=== PATIENT | female | born 2000 | race African-American/Black ===

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

== ENCOUNTER 2019-06-29 14:47 | Emergency (ER) | payer SELFPAY ==
[~2019-06-29] VITALS: Ht 160 cm; Wt 126.0 kg
[~2019-06-29 14:47] MED LIST changes: +BACI28.34 TP; +HYDR-2761 PO
[2019-06-29 15:32] LABS: BILIRUBIN,URINE NEGATIVE (NEG); CLARITY,URINE CLEAR; COLOR,URINE YELLOW; NITRITE,URINE NEGATIVE (NEG); PROTEIN,URINE NEGATIVE (NEG-TRACE); UROBILINOGEN,URINE 0.2 mg/dL (0.2 mg/dL)
[2019-06-29 15:55] LABS: BACTERIA,URINE FEW /HPF (0-FEW); SQUAMOUS EPITHELIAL CELL,UR FEW /LPF
[2019-06-29] MEDS ORDERED: METR500T PO (17:41)
--- NOTE | 2019-06-29 17:41 | PHYS DOC ---
Past Medical History Past Medical History: No Pertinent History Additional Past Medical Histor: strep throat (ARTI ROMERO APRN) Past Surgical History: No Surgical History (ARTI ROMERO APRN) Smoking Status: Never Smoker Alcohol Use: Occasionally Drug Use: Marijuana (ARTI ROMERO APRN) Adult General Chief Complaint Chief Complaint: PAIN ON URINATION HPI HPI Patient is a 18 year old AA female who presents to the emergency department with complaints of irregular vaginal discharge and odor for the last month with dysuria for the last 2 weeks. She reports that her lower abdomen hurts when she urinates. Patient states she feels like she did when she previously had bacterial vaginosis. Patient reports having irregular menstrual cycles for months now. She reports that she started to have bloody vaginal discharge today. She currently rates her pain a 9 out of 10 on the pain scale, she denies any alleviating factors, and describes the pain as burning. She denies any urinary frequency, hesitancy, or urgency. She denies any fever, nausea, vomiting, diarrhea, constipation, cough, shortness of breath, ear pain, or sore throat. (ARTI ROMERO APRN) Review of Systems Review of Systems Complete ROS is negative unless otherwise noted in HPI. (ARTI ROMERO APRN) Allergies Allergies Allergies Coded Allergies Type Severity Reaction Last Updated Verified No Known Drug Allergies 09/22/14 No (DEANDRE MCKEON MD) Physical Exam Physical Exam See Above Constitutional: Well developed, well nourished, no acute distress, non-toxic appearance, obese. HENT: Normocephalic, atraumatic, bilateral external ears normal, nose normal. Eyes: PERRLA, EOMI, conjunctiva normal, no discharge. Neck: Normal range of motion, supple, no stridor. 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 Extremities: No cyanosis, ROM intact, no edema. Neurologic: Alert and oriented X 3, no focal deficits noted. Psychologic: Affect normal, judgement normal, mood normal. (ARTI ROMERO APRN) Current Patient Data Vital Signs Vital Signs Date Time Temp Pulse Resp B/P (MAP) Pulse Ox O2 Delivery O2 Flow Rate FiO2 06/29/19 17:49 98.1 88 18 99 98.1 06/29/19 14:56 129/68 (88) Room Air (DEANDRE MCKEON MD) Lab Values Laboratory Tests Test 06/29/19 14:50 06/29/19 15:23 Urine Collection Type Void Urine Color Yellow Urine Clarity Clear Urine pH 6.0 (<5.0-8.0) Urine Specific [place] 1.020 (1.000-1.030) Urine Protein Negative mg/dL (NEG-TRACE) Urine Glucose (UA) Negative mg/dL (NEG) Urine Ketones (Stick) Negative mg/dL (NEG) Urine Blood Small (NEG) Urine Nitrite Negative (NEG) Urine Bilirubin Negative (NEG) Urine Urobilinogen Dipstick 0.2 mg/dL (0.2 mg/dL) Urine Leukocyte Esterase Negative (NEG) Urine RBC 6-10 /HPF (0-2) Urine WBC 1-4 /HPF (0-4) Urine Squamous Epithelial Cells Few /LPF Urine Bacteria Few /HPF (0-FEW) Urine Mucus Mod /LPF POC Urine HCG, Qualitative Hcg negative (Negative) Microbiology 06/29/19 Wet Prep - Final, Complete (DEANDRE MCKEON MD) EKG EKG [] (ARTI ROMERO APRN) Radiology/Procedures Radiology/Procedures UA is not concerning for a urinary tract infection, wet mount is concerning for bacterial vaginosis. Prescription written for Flagyl 500 mg p.o. twice daily x7 days. Patient encouraged to follow-up with Dr. Jones for further evaluation of irregular menstrual cycles, or her primary care doctor. Encourage patient to return to the ER if symptoms worsen or fever develops. Patient verbalized an understanding of home care, medications, follow-up, and r eturn to ED instructions and was in agreement with the plan of care. [] (ARTI ROMERO APRN) Course & Med Decision Making Course & Med Decision Making Pertinent Labs and Imaging studies reviewed. (See chart for details) [] (ARTI ROMERO APRN) Course & Med Decision Making I was not involved in the care of this patient at 1800 on June 29, 2019. (DEANDRE MCKEON MD) Dragon Disclaimer Dragon Disclaimer This electronic medical record was generated, in whole or in part, using a voice recognition dictation system. (ARTI ROMERO APRN) Departure Departure Impression: Primary Impression: Bacterial vaginosis Additional Impression: Irregular uterine bleeding Disposition: HOME, SELF-CARE Condition: STABLE Referrals: NO PCP (PCP) DENISE ABERNATHY Jr, MD Patient Instructions: Abnormal Uterine Bleeding, Bacterial Vaginosis, [id number] Additional Instructions: Fill the prescription and use it as directed. Follow-up with for further evaluation of your abnormal uterine bleeding, or use the provider list that was given to you to follow-up with a primary care doctor Scripts Metronidazole (FLAGYL) 500 Mg Tablet 1 TAB PO BID, #14 TAB 0 Refills Prov: ARTI ROMERO APRN 06/29/19 Problem Qualifiers ARTI ROMERO APRN Jun 29, 2019 17:41 DEANDRE MCKEON MD Jun 30, 2019 18:22
[2019-06-29 17:49] VITALS: BP 123/74
[2019-07-01 06:09] LABS: GC PROBE Negative (Negative)
--- NOTE | 2019-07-01 17:31 | VNOTE ---
CALL BACK NOTE CALL BACK Microbiology 06/29/19 Wet Prep - Final, Complete Spoke with patient about positive Chlamydia testing. will send over prescription for zithromax to [facility] on [address] [facility] [address] [address] [facility] [address] ARTI ROMERO APRN Jul 01, 2019 17:31
== END 2019-06-29 17:51 | disposition home or self-care (01) ==
LOC: ER 14:47
DX: N76.0 Acute vaginitis (principal); B96.89 Other specified bacterial agents as the cause of diseases classified elsewhere; N93.9 Abnormal uterine and vaginal bleeding, unspecified; F12.90 Cannabis use, unspecified, uncomplicated
CPT/HCPCS: 81001; 81025; 87491; 87591; 99284; Q0111

== ENCOUNTER 2019-12-08 19:31 | Emergency (ER) | payer SELFPAY ==
[~2019-12-08] VITALS: Ht 157.5 cm; Wt 109.0 kg
[2019-12-08 20:04] VITALS: BP 135/96
--- NOTE | 2019-12-08 20:22 | PHYS DOC ---
Past Medical History Past Medical History: No Pertinent History Additional Past Medical Histor: strep throat Past Surgical History: No Surgical History Smoking Status: Never Smoker Alcohol Use: Occasionally Drug Use: Marijuana General Adult EDM: Chief Complaint: PELVIC PAIN HPI: HPI: Patient is a 19-year-old female who presents to the ED with vaginal itching and pain. Patient was treated for chlamydia 3 months ago and states she regularly has "bacterial vaginosis" and UTIs. Patient describes itching and burning as well as a new darker discharge. Patient is currently sexually active with one partner. Patient's last menstrual period was 1 month ago, and is currently starting her first day. Review of Systems: Review of Systems: Constitutional: Denies fever or chills. [] Eyes: Denies change in visual acuity. [] HENT: Denies nasal congestion or sore throat. [] Respiratory: Denies cough or shortness of breath. [] Cardiovascular: Denies chest pain or edema. [] GI: Denies abdominal pain, nausea, vomiting, bloody stools or diarrhea. [] : Denies dysuria. [] Musculoskeletal: Denies back pain or joint pain. [] Integument: Denies rash. [] Neurologic: Denies headache, focal weakness or sensory changes. [] Endocrine: Denies polyuria or polydipsia. [] Lymphatic: Denies swollen glands. [] Psychiatric: Denies depression or anxiety. [] Heart Score: Risk Factors: Risk Factors: DM, Current or recent (<one month) smoker, HTN, HLP, family history of CAD, obesity. Risk Scores: Score 0 - 3: 2.5% MACE over next 6 weeks - Discharge Home Score 4 - 6: 20.3% MACE over next 6 weeks - Admit for Clinical Observation Score 7 - 10: 72.7% MACE over next 6 weeks - Early Invasive Strategies Allergies: Allergies: Allergies Coded Allergies Type Severity Reaction Last Updated Verified No Known Drug Allergies 09/22/14 No Physical Exam: PE: Constitutional: Well developed, well nourished, no acute distress, non-toxic appearance. [] HENT: Normocephalic, atraumatic, bilateral external ears normal, oropharynx moist, no oral exudates, nose normal. [] Eyes: PERRLA, EOMI, conjunctiva normal, no discharge. [] Neck: Normal range of motion, no tenderness, supple, no stridor. [] Cardiovascular:Heart rate regular rhythm, no murmur [] Lungs & Thorax: Bilateral breath sounds clear to auscultation [] Abdomen: Bowel sounds normal, soft, no tenderness, no masses, no pulsatile masses. [] Skin: Warm, dry, no erythema, no rash. [] Back: No tenderness, no CVA tenderness. [] Extremities: No tenderness, no cyanosis, no clubbing, ROM intact, no edema. [] Neurologic: Alert and oriented X 3, normal motor function, normal sensory function, no focal deficits noted. [] Psychologic: Affect normal, judgement normal, mood normal. [] Current Patient Data: Labs: Laboratory Tests Test 12/08/19 20:03 POC Urine HCG, Qualitative Hcg negative (Negative) Course & Med Decision Making: Course & Med Decision Making Pertinent Labs and Imaging studies reviewed. (See chart for details) Patient is a 19-year-old female presenting to the ED with pelvic pain. Patient states she has had itching and burning in the vaginal area with new darker discharge. Patient has a long history of bacterial vaginosis, was treated for chlamydia 3 months ago, and a tree of UTIs. Urine analysis shows contamination with squamous epithelial cells likely due to menses. Patient is negative for bacterial vaginosis. Patient will be notified of results of other pending STI labs. Patient stable for discharge with outpatient follow-up with PCP. Discussed findings and plan with patient, who acknowledges understanding and agreement. Jermaine Disclaimer: Jermaine Disclaimer: This electronic medical record was generated, in whole or in part, using a voice recognition dictation system. Departure Departure Impression: Primary Impression: Concern about STD in female without diagnosis Disposition: 01 HOME, SELF-CARE Condition: STABLE Referrals: NO PCP (PCP) DENISE ABERNATHY Jr, MD Patient Instructions: Sexually Transmitted Disease, [id number] Justicifation of Admission Dx: Justifications for Admission: Justification of Admission Dx: N/A KESHIA VARMA DO Dec 08, 2019 20:22
[2019-12-08 20:23] LABS: BILIRUBIN,URINE NEGATIVE (NEG); CLARITY,URINE CLOUDY; COLOR,URINE AMBER; NITRITE,URINE NEGATIVE (NEG); PROTEIN,URINE 30 mg/dL (NEG-TRACE); UROBILINOGEN,URINE 0.2 mg/dL (0.2 mg/dL)
[2019-12-08 20:27] LABS: SQUAMOUS EPITHELIAL CELL,UR MANY /LPF
[2019-12-08 20:28] LABS: BACTERIA,URINE MANY /HPF (0-FEW); RBC,URINE 20-40 /HPF (0-2)
[2019-12-08 20:30] LABS: WBC,URINE OCC /HPF (0-4)
[2019-12-08] MEDS ORDERED: AZITHROMYCIN 250 MG TABLET. PO ONE (21:00)
[2019-12-08] MEDS ORDERED: cefTRIAXone IM 250 MG VIAL IM ONE (21:00)
[2019-12-10 21:08] LABS: GC PROBE Negative (Negative)
== END 2019-12-08 21:24 | disposition home or self-care (01) ==
LOC: ER 19:31
DX: Z20.2 Contact with and (suspected) exposure to infections with a predominantly sexual mode of transmission (principal); L29.8 Other pruritus; R10.2 Pelvic and perineal pain; Z87.440 Personal history of urinary (tract) infections
CPT/HCPCS: 81001; 81025; 87086; 87491; 87591; 96372; 99284; J0696; Q0111

== ENCOUNTER 2020-08-21 04:12 | Emergency (ER) | payer SELFPAY ==
[~2020-08-21] VITALS: Ht 157.5 cm; Wt 94.0 kg
[2020-08-21] MEDS ORDERED: cefTRIAXone IM 500 MG VIAL. IM ONE (06:30)
[2020-08-21] MEDS ORDERED: AZITHROMYCIN 250 MG TABLET. PO ONE (06:30)
--- NOTE | 2020-08-21 06:35 | PHYS DOC ---
Past Medical History Past Medical History: STD Additional Past Medical Histor: Frequent strep throat Past Surgical History: No Surgical History Smoking Status: Current Some Day Smoker Additional Information: SHE VAPES Alcohol Use: Occasionally Drug Use: Marijuana General Adult EDM: Chief Complaint: MULTIPLE COMPLAINTS HPI: HPI: Patient is a 20 year old [f__sex] who presents with [] Review of Systems: Review of Systems: Constitutional: Denies fever or chills Eyes: Denies redness or eye pain HENT: Denies nasal congestion or sore throat Respiratory: Denies cough or shortness of breath Cardiovascular: Denies chest pain or palpitations GI: Reports lower abdominal/pelvic pain; denies nausea or vomiting : Reports dysuria; denies hematuria MACHINE RIVETER: Denies vaginal bleeding or discharge Musculoskeletal: Denies back pain or joint pain Integument: Denies rash or skin lesions Neurologic: Denies headache, focal weakness or sensory changes Complete systems were reviewed and found to be within normal limits, except as documented in this note. Heart Score: C/O Chest Pain: N/A Allergies: Allergies: Allergies Coded Allergies Type Severity Reaction Last Updated Verified No Known Drug Allergies 09/22/14 No Physical Exam: PE: Constitutional: Well developed, well nourished, no acute distress, non-toxic appearance HENT: Normocephalic, atraumatic Eyes: Conjunctiva normal, no discharge Neck: Normal range of motion, supple Lungs & Thorax: No respiratory distress, equal chest rise and fall Abdomen: Soft, no tenderness, no guarding/rebound tenderness/distention Pelvic exam: Neurodiagnostic Tech RN, external genitalia normal, no CMT, no adnexal tenderness Skin: Warm, dry, no erythema, no rash Back: No tenderness, no CVA tenderness Extremities: No tenderness, ROM intact, no edema Neurologic: Alert and oriented X 3, no focal deficits noted Psychologic: Affect normal, judgment normal Current Patient Data: Vital Signs: Vital Signs Date Time Temp Pulse Resp B/P (MAP) Pulse Ox O2 Delivery O2 Flow Rate FiO2 08/21/20 04:30 97.3 112 20 128/87 (101) 99 Room Air 97.3 EKG: EKG: [] Radiology/Procedures: Radiology/Procedures: [] Course & Med Decision Making: Course & Med Decision Making Pertinent Lab studies reviewed. (See chart for details) Patient presents with report of dysuria and increased frequency. Patient reports concern for STD exposure as her boyfriend recently tested positive and has been treated. Patient was awaiting health department appointment. Patient reports last night symptoms became worse. UA...... Urine ..... Pelvic exam performed. Chlamydia/gonorrhea cultures pending. Empiric treatment provided. Wet mount.... Patient stable for discharge with outpatient follow-up with PCP/MACHINE RIVETER. MACHINE RIVETER referral provided. Discussed findings and plan with patient, who acknowledges understanding and agreement. Jermaine Disclaimer: Jermaine Disclaimer: This electronic medical record was generated, in whole or in part, using a voice recognition dictation system. Departure Departure Impression: Primary Impression: UTI (urinary tract infection) Qualified Codes: N30.01 - Acute cystitis with hematuria Additional Impressions: Concern about STD in female without diagnosis Hematuria Qualified Codes: R31.29 - Other microscopic hematuria Disposition: HOME / SELF CARE / HOMELESS Condition: STABLE Referrals: NO PCP (PCP) DENISE ABERNATHY Jr, MD Patient Instructions: Hematuria, Adult, Sexually Transmitted Disease, [id number], Urinary Tract Infection, [id number] Additional Instructions: No sexual activity x1 week. Partner(s) may require retesting if you have been sexually active since they were treated. Scripts Cephalexin (CEPHALEXIN) 500 Mg Tablet 1 TAB PO TID for 7 Days, #21 TAB Prov: KESHIA VARMA DO 08/21/20 KESHIA VARMA DO August 21, 2020 06:35
[2020-08-21 06:36] LABS: PREG TEST PT QUAL NEGATIVE (NEG)
[2020-08-21 06:46] LABS: BILIRUBIN,URINE NEGATIVE (NEG); CLARITY,URINE CLOUDY; COLOR,URINE RED; NITRITE,URINE NEGATIVE (NEG); PH,URINE 6.5 (<5.0-8.0); PROTEIN,URINE >=300 mg/dL (NEG-TRACE)
[2020-08-21 06:48] LABS: BACTERIA,URINE MODERATE /HPF (0-FEW); RBC,URINE TNTC /HPF (0-2)
[2020-08-21] MEDS ORDERED: CEPH500T PO (07:11)
[2020-08-21 07:43] LABS: BASO # 0.1 x10^3/uL (0.0-0.2); BASO % 1 % (0-3); EOS # 0.3 x10^3/uL (0.0-0.7); EOS % 3 % (0-3); HEMATOCRIT 36.4 % (36.0-47.0); HEMOGLOBIN 11.5 g/dL (12.0-15.5); LYMPH # 3.4 x10^3/uL (1.0-4.8); LYMPH % 27 % (24-48); MEAN CORPUSCULAR HEMOGLOBIN 23 pg (25-35); MEAN CORPUSCULAR HGB CONC 32 g/dL (31-37); MEAN CORPUSCULAR VOLUME 74 fL (79-100); MONO # 0.5 x10^3/uL (0.0-1.1); MONO % 4 % (0-9); NEUT # 8.3 x10^3/uL (1.8-7.7); NEUT % 66 % (31-73); PLATELET COUNT 405 x10^3/uL (140-400); RED CELL DISTRIBUTION WIDTH 17.7 % (11.5-14.5); WHITE BLOOD COUNT 12.6 x10^3/uL (4.0-11.0)
[2020-08-21 07:46] LABS: CALCIUM 8.6 mg/dL (8.5-10.1); CREATININE 0.7 mg/dL (0.6-1.0); GFR 127.8; MAGNESIUM 2.1 mg/dL (1.8-2.4); POTASSIUM 4.1 mmol/L (3.5-5.1)
--- NOTE | 2020-08-21 07:58 | RAD ---
CT scan abdomen and pelvis without contrast 08/21/2020 CLINICAL HISTORY: Hematuria. TECHNIQUE: Unenhanced, contiguous, 2 mm axial sections were obtained through the abdomen and pelvis. One or more of the following individualized dose reduction techniques were utilized for this study: 1. Automated exposure control. 2. Adjustment of the mA and/or kV according to patient size. 3. Use of iterative reconstruction technique. FINDINGS: Images through the lung bases demonstrate a 4 mm nodular opacity involving the right lower lobe which may represent an area of subsegmental atelectasis. The liver, spleen, pancreas, and adrenal glands are within normal limits. No renal or ureteral calcul us is seen. There is no evidence of obstruction of either collecting system. The abdominal aorta tapers normally. The gallbladder is contracted. No free fluid or free air is with in the abdomen. There is no evidence of bowel obstruction. The appendix is well-visualized and is wit hin normal limits. Images through the pelvis demonstrate the urinary bladder to be contracted. No distal ureteral calcul us is seen. No free fluid is noted. The osseous structures are grossly intact. IMPRESSION: No acute abnormality is seen. Electronically signed by: Denilson Morris MD (08/21/2020 7:56 AM) [id number]
[2020-08-21 08:40] VITALS: BP 123/69
[2020-08-22 15:37] LABS: GC PROBE Negative (Negative)
== END 2020-08-21 08:43 | disposition home or self-care (01) ==
LOC: ER 04:12
DX: N39.0 Urinary tract infection, site not specified (principal); R33.9 Retention of urine, unspecified; F12.10 Cannabis abuse, uncomplicated; Z20.2 Contact with and (suspected) exposure to infections with a predominantly sexual mode of transmission
CPT/HCPCS: 36415; 74176; 80048; 81001; 83735; 84703; 85025; 87086; 87491; 87591; 96372; 99284; J0696; Q0111

== ENCOUNTER 2021-07-28 15:38 | Emergency (ER) | payer SELFPAY ==
[~2021-07-28] VITALS: Ht 162.6 cm; Wt 121.0 kg
[2021-07-28 16:28] LABS: BACTERIA,URINE 0 /HPF (0-FEW); WBC,URINE TNTC /HPF (0-4)
[2021-07-28 17:18] LABS: BASO % 0 % (0-3); EOS # 0.1 x10^3/uL (0.0-0.7); EOS % 1 % (0-3); HEMATOCRIT 36.4 % (36.0-47.0); HEMOGLOBIN 11.7 g/dL (12.0-15.5); LYMPH # 3.3 x10^3/uL (1.0-4.8); LYMPH % 33 % (24-48); MEAN CORPUSCULAR HEMOGLOBIN 24 pg (25-35); MEAN CORPUSCULAR HGB CONC 32 g/dL (31-37); MEAN CORPUSCULAR VOLUME 75 fL (79-100); MONO # 0.5 x10^3/uL (0.0-1.1); MONO % 5 % (0-9); NEUT # 6.1 x10^3/uL (1.8-7.7); NEUT % 61 % (31-73); PLATELET COUNT 362 x10^3/uL (140-400); RED BLOOD COUNT 4.84 x10^6/uL (3.50-5.40); RED CELL DISTRIBUTION WIDTH 15.7 % (11.5-14.5)
[2021-07-28 18:03] LABS: CALCIUM 9.2 mg/dL (8.5-10.1); CREATININE 0.8 mg/dL (0.6-1.0); GFR 109.6; POTASSIUM 3.7 mmol/L (3.5-5.1)
[2021-07-28 18:09] LABS: ALBUMIN 3.9 g/dL (3.4-5.0); ALBUMIN/GLOBULIN RATIO 0.8 (1.0-1.7); TOTAL BILIRUBIN 0.3 mg/dL (0.2-1.0); TOTAL PROTEIN 8.8 g/dL (6.4-8.2)
--- NOTE | 2021-07-28 18:43 | PHYS DOC ---
Past Medical History Past Medical History: STD Additional Past Medical Histor: Frequent strep throat Past Surgical History: No Surgical History Smoking Status: Never Smoker Alcohol Use: None Drug Use: Marijuana General Adult EDM: Chief Complaint: ABDOMINAL PAIN HPI: HPI: Patient is a 20 year old female who presents with lower abdominal pain and dysuria. Patient is concerned for STDs. She has had at least 6 new partners in the last 6 months, with 2 of which she had intercourse without protection. Patient reports she has had 4 days of what she believed to be premenstrual cramping, but never got a period. She states she has a burning sensation at the termination of urination. Patient denies fever, chills, dyspareunia, increased vaginal discharge, vaginal odor, vaginal bleeding. Review of Systems: Review of Systems: Constitutional: Denies fever or chills Eyes: Denies change in visual acuity, visual field deficits or discharge HENT: Denies ear pain, nasal congestion or sore throat Respiratory: Denies cough or shortness of breath Cardiovascular: Denies chest pain, palpitations or edema GI: Denies abdominal pain, nausea, vomiting, bloody stools or diarrhea : See HPI Musculoskeletal: Denies back pain or joint pain Integument: Denies rash or other skin lesion Neurologic: Denies headache, focal weakness or sensory changes Heart Score: C/O Chest Pain: No Allergies: Allergies: Allergies Coded Allergies Type Severity Reaction Last Updated Verified No Known Drug Allergies 09/22/14 No Physical Exam: PE: Constitutional: Obese, no acute distress, non-toxic appearance. HENT: Normocephalic, atraumatic, bilateral external ears normal, oropharynx moist, no oral exudates, nose normal. Eyes: PERRL, EOMI, conjunctiva normal, no discharge. Neck: Normal range of motion, no stridor. Abdomen: Bowel sounds normal, soft, suprapubic tenderness without rebound or guarding, no masses, no pulsatile masses. Genital: Skin: Warm, dry, no erythema, no rash. Back: No tenderness, no CVA tenderness. Extremities: No tenderness, no cyanosis, no clubbing, ROM intact, no edema. Neurologic: Alert and oriented x4, normal motor function, normal sensory function, no focal deficits noted. Current Patient Data: Labs: Laboratory Tests Test 07/28/21 16:01 07/28/21 16:04 07/28/21 16:19 07/28/21 17:35 Urine Collection Type Unknown Urine Color (Auto) Yellow Urine Turbidity Turbid Urine pH (Auto) 6.0 (<5.0-8.0) Urine Specific [place] 1.046 (1.000-1.030) Urine Protein (Auto) 70 mg/dL (Negative) Urine Glucose (Auto)(UA) Negative mg/dL (Negative) Urine Ketones (Auto) Trace mg/dL (Negative) Urine Blood (Auto) Moderate (Negative) Urine Nitrite Negative (Negative) Urine Bilirubin (Auto) Negative (Negative) Urine Urobilinogen (Auto) 3 mg/dL (Normal) Urine Leukocyte Esterase (Auto) Large (Negative) Urine RBC 3-5 /HPF (0-2) Urine WBC Tntc /HPF (0-4) Urine Squamous Epithelial Cells Mod /LPF Urine Bacteria 0 /HPF (0-FEW) Urine Mucus Marked /LPF POC Urine HCG, Qualitative Hcg negative (Negative) White Blood Count 10.0 x10^3/uL (4.0-11.0) Red Blood Count 4.84 x10^6/uL (3.50-5.40) Hemoglobin 11.7 g/dL (12.0-15.5) L Hematocrit 36.4 % (36.0-47.0) Mean Corpuscular Volume 75 fL (79-100) L Mean Corpuscular Hemoglobin 24 pg (25-35) L Mean Corpuscular Hemoglobin Concent 32 g/dL (31-37) Red Cell Distribution Width 15.7 % (11.5-14.5) H Platelet Count 362 x10^3/uL (140-400) Neutrophils (%) (Auto) 61 % (31-73) Lymphocytes (%) (Auto) 33 % (24-48) Monocytes (%) (Auto) 5 % (0-9) Eosinophils (%) (Auto) 1 % (0-3) Basophils (%) (Auto) 0 % (0-3) Neutrophils # (Auto) 6.1 x10^3/uL (1.8-7.7) Lymphocytes # (Auto) 3.3 x10^3/uL (1.0-4.8) Monocytes # (Auto) 0.5 x10^3/uL (0.0-1.1) Eosinophils # (Auto) 0.1 x10^3/uL (0.0-0.7) Basophils # (Auto) 0.0 x10^3/uL (0.0-0.2) Sodium Level 137 mmol/L (136-145) Potassium Level 3.7 mmol/L (3.5-5.1) Chloride Level 102 mmol/L (98-107) Carbon Dioxide Level 29 mmol/L (21-32) Anion Gap 6 (6-14) Blood Urea Nitrogen 16 mg/dL (7-20) Creatinine 0.8 mg/dL (0.6-1.0) Estimated GFR (Cockcroft-Gault) 109.6 BUN/Creatinine Ratio 20 (6-20) Glucose Level 91 mg/dL (70-99) Calcium Level 9.2 mg/dL (8.5-10.1) Total Bilirubin 0.3 mg/dL (0.2-1.0) Aspartate Amino Transferase (AST) 14 U/L (15-37) L Alanine Aminotransferase (ALT) 25 U/L (14-59) Alkaline Phosphatase 76 U/L (46-116) Total Protein 8.8 g/dL (6.4-8.2) H Albumin 3.9 g/dL (3.4-5.0) Albumin/Globulin Ratio 0.8 (1.0-1.7) L Laboratory Tests 07/28/21 16:19 Laboratory Tests 07/28/21 17:35 Microbiology 07/28/21 Wet Prep - Final, Complete CLUE CELLS CLUE CELLS PRESENT ALTERED SARAH ALTERED SARAH PRESENT SUGGESTIVE OF BACTERIAL VAGINOSIS Vital Signs: Vital Signs Date Time Temp Pulse Resp B/P (MAP) Pulse Ox O2 Delivery O2 Flow Rate FiO2 07/28/21 20:43 91 18 135/63 (87) 99 Room Air 07/28/21 19:20 94 18 107/63 (78) 97 Room Air 07/28/21 15:43 98.1 91 18 131/84 (100) 98 Room Air 98.1 Course & Med Decision Making: Course & Med Decision Making Pertinent Labs and Imaging studies reviewed. (See chart for details) Patient is a 20-year-old female concerned for urinary tract infection and STIs. Work-up today will include urinalysis, PCR gonorrhea/chlamydia, wet prep, syphilis testing. Due to patient having multiple sexual partners with which she did not use barrier contraceptive, combined with current symptoms, patient will be empirically treated for gonorrhea chlamydia. Wet prep reveals BV as well. Patient was counseled on safe sex practices. She is advised to discuss gonorrhea/chlamydia results when they are available with her partners, as they will also need treatment. Patient instructed to remain abstinent until she and her sexual partners have been treated. Return precautions provided. Patient understands and is agreeable to discharge plan. Jermaine Disclaimer: Jermanie Disclaimer: This electronic medical record was generated, in whole or in part, using a voice recognition dictation system. Departure Departure Impression: Primary Impression: Urinary tract infection Qualified Codes: N30.00 - Acute cystitis without hematuria Additional Impressions: Bacterial vaginosis Sexually transmitted disease in female Disposition: HOME / SELF CARE / HOMELESS Condition: STABLE Referrals: NO PCP (PCP) Patient Instructions: Bacterial Vaginosis, [id number], Safe Sex, Sexually Transmitted Disease, [id number] Additional Instructions: EMERGENCY DEPARTMENT GENERAL DISCHARGE INSTRUCTIONS Thank you for coming to [facility] Emergency Department (ED) today and trusting us with you care. We trust that you had a positive experience in our Emergency Department. If you wish to speak to the department management, you may call the director at . YOUR FOLLOW UP INSTRUCTIONS ARE FOLLOWS: 1. Follow up with your primary care doctor. If you do not have a primary doctor, please ask for a resource list of physicians or clinics that may be able to assist you with follow up care. 2. The emergency provider has interpreted your imaging studies, if any were ordered. The radiology digital imaging specialist also reviewed them. If there is a change in the findings, you will be notified in 48 hours when at all possible. 3. If a lab test or culture has been done, your results will be reviewed and you will be notified if you need a change in treatment. 4. Follow instructions verbalized to you and refer to the printouts if needed. ADDITIONAL INSTRUCTIONS AND INFORMATION: 1. Your care today has been supervised by a physician who is specially trained in emergency care. Many problems require more than one evaluation for a complete diagnosis and treatment. We recommend that you schedule your follow up appointment as recommended to ensure complete treatment of you illness or injury. If you are unable to obtain follow up care and continue to have a problem, or if your condition worsens, we recommend that you return to the ED. 2. We are not able to safely determine your condition over the phone nor are we able to give sound medical advice over the phone. For these safety reasons, if you call for medical advice we will ask you to come to the ED for further evaluation. 3. If you have any questions regarding these discharge instructions please call the ED at . SAFETY INFORMATION: In the interest of safety, wellness, and injury prevention; we encourage you to wear your seat belt, if you smoke; quite smoking, and we encourage family to use a protective helmet for bicycling and other sporting events that present an increased risk for head injury. IF YOUR SYMPTOMS WORSEN OR NEW SYMPTOMS DEVELOP, OR YOU HAVE CONCERNS ABOUT YOUR CONDITION; OR IF YOUR CONDITION WORSENS WHILE YOU ARE WAITING FOR YOUR FOLLOW UP APPOINTMENT; EITHER CONTACT YOUR PRIMARY CARE DOCTOR, THE PHYSICIAN WHOSE NAME AND NUMBER YOU WERE GIVEN, OR RETURN TO THE ED IMMEDIATELY. Scripts Fluconazole (DIFLUCAN) 150 Mg Tablet 1 TAB PO DAILY, #2 TAB 1 Refill Take 1 tablet by mouth on days 5 and 7 only. Prov: ERA SOLORIO 07/28/21 Ondansetron (ONDANSETRON ODT) 4 Mg Tab.rapdis 1 TAB PO PRN Q6-8HRS, #20 TAB Prov: ERA SOLORIO 07/28/21 Doxycycline Hyclate (DOXYCYCLINE HYCLATE) 100 Mg Capsule 1 CAP PO BID, #13 CAP 0 Refills Prov: ERA SOLORIO 07/28/21 Metronidazole (METRONIDAZOLE) 500 Mg Tablet 1 TAB PO BID for 7 Days, #13 TAB 0 Refills Prov: ERA SOLORIO 07/28/21 ERA SOLORIO Jul 28, 2021 18:43
[2021-07-28] MEDS ORDERED: DOXYCYCLINE HYCLATE 100 MG TABLET PO ONE (19:15)
[2021-07-28] MEDS ORDERED: metroNIDAZOLE 500 MG TABLET PO ONE (19:15)
[2021-07-28] MEDS ORDERED: cefTRIAXone IM 500 MG VIAL. IM ONE (19:15)
[2021-07-28] MEDS ORDERED: ONDA4TAB12 PO (19:19)
[2021-07-28] MEDS ORDERED: DOXY100C3 PO (19:19)
[2021-07-28] MEDS ORDERED: METR-34 PO (19:19)
[2021-07-28] MEDS ORDERED: LIDOCAINE 2% Multi-Dose 20 ML VIAL. ONE (19:21)
[2021-07-28] MEDS ORDERED: FLUC150T PO (19:28)
[2021-07-28] MEDS ORDERED: cefTRIAXone IV Push 1 GM VIAL. IVP ONE (20:00)
[2021-07-28 20:43] VITALS: BP 135/63
[2021-07-29 21:15] LABS: GC PROBE Negative (Negative)
== END 2021-07-28 20:03 | disposition home or self-care (01) ==
LOC: ER 15:38
DX: N30.00 Acute cystitis without hematuria (principal); N76.0 Acute vaginitis; B96.89 Other specified bacterial agents as the cause of diseases classified elsewhere; A64 Unspecified sexually transmitted disease
CPT/HCPCS: 36415; 80053; 81001; 81025; 85025; 86592; 87086; 87491; 87591; 96374; 99283; J0696; Q0111